=== PATIENT | male | born 1950 | race Hispanic/Latino ===

== ENCOUNTER → 2022-09-04 | Outpatient (CLI) | payer OTHER | END | disposition home or self-care (01) | LOC: SHCH 09:48 | PROVIDERS: ATTEND Internal Medicine Cardiovascular Disease | DX: I87.2 Venous insufficiency (chronic) (peripheral) (principal); I73.9 Peripheral vascular disease, unspecified | CPT/HCPCS: 93925; 93970 ==

== ENCOUNTER 2024-12-02 08:27 | Day surgery (SDC) | payer OTHER ==
[2024-11-28 10:55] VITALS: BP 169/71; PULSE 61; RESP 18; TEMP 97.2
[2024-11-28 11:07] LABS: CREATININE 1.2 mg/dL (0.5-1.3); POTASSIUM 4.4 mmol/L (3.5-5.1)
[2024-11-28 11:22] LABS: MEAN CORPUSCULAR HEMOGLOBIN 32.4 pg (27.0-33.0); MEAN CORPUSCULAR HGB CONC 34.3 g/dL (32.0-36.0); MEAN CORPUSCULAR VOLUME 94.3 fL (79-99); PLATELET COUNT (AUTO) 126 K/uL (130-400); RED BLOOD CELL COUNT(AUTO) 4.88 MIL/uL (4.50-6.20); RED CELL DISTRIBUTION WIDTH 13.8 % (11.0-15.5); WHITE BLOOD COUNT (AUTO) 6.2 K/uL (4.8-10.8)
[2024-11-28 11:23] LABS: BASOPHILS # (AUTO) 0.03 K/uL (0.00-0.20); BASOPHILS % (AUTO) 0.5 % (0.0-5.0); EOSINOPHILS # (AUTO) 0.09 K/uL (0.00-0.70); EOSINOPHILS % (AUTO) 1.4 % (0.0-8.0); IMMATURE GRANULOCYTE ABSOLUTE 0.03 K/uL (0-1); LYMPHOCYTES % (AUTO) 16.3 % (21.0-51.0); MONOCYTES # (AUTO) 0.6 K/uL (0.1-1.0); MONOCYTES % (AUTO) 9.7 % (3.0-13.0); NEUTROPHILS # (AUTO) 4.5 K/uL (1.8-7.7); NEUTROPHILS % (AUTO) 71.6 % (40.0-77.0)
[~2024-12-02] VITALS: Ht 182.9 cm; Wt 100.2 kg
[~2024-12-02 08:27] MED LIST: AMIO200T68 PO; AMLO-257 PO; ATOR40TA69 PO; CYAN-35 PO; ERGO500093 PO; FINE10TA PO; LINA1TAB5 PO; LISI40TA9 PO; PIOG30TA70 PO; RIVA20TA PO; TAMS-1 PO; VIT1CAPS47 PO
[2024-12-02] MEDS ORDERED: 0.9%NACL 1000ML 1,000 ML IV SCH (08:30)
[2024-12-02 09:00] VITALS: BP 162/72; PULSE 59; RESP 18; TEMP 97.2
--- NOTE | 2024-12-02 10:18 | EKG ---
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
[2024-12-02] MEDS ORDERED: proPOFol 10 MG/ML 20ML VIAL IV ONE (13:33)
[2024-12-02] MEDS ORDERED: LIDOCAINE PF 100MG/5ML (2%) SYRINGE 5ML ONE (13:33)
--- NOTE | 2024-12-02 13:55 | NUR ---
DR. MCMAHON SYNCHRONIZED CARDIOVERTED PT AT 200 JOULES. PT TOLERATED WELL NAD VSS.
--- NOTE | 2024-12-02 14:00 | NUR ---
PT CONVERTED BACK TO A FIB DR. MCMAHON SPEAKING WITH PT AND AT BEDSIDE ABOUT OTHER OPTIONS S/S. VSS NAD. PT CAOX 4
[2024-12-02 14:05] VITALS: BP 146/63; PULSE 55; RESP 15
--- NOTE | 2024-12-02 14:10 | NUR ---
PT AND SPOUSE REQUESTING INFORMATION ABOUT CARDIAC ABLATION I DID TELL THEM I WILL GIVE THEM INFORMATION ABOUT THIS.
[2024-12-02 14:20] VITALS: BP 141/69; PULSE 55; RESP 14; TEMP 97.4
[2024-12-02 14:35] VITALS: BP 150/66; PULSE 54; RESP 15
[2024-12-02 14:50] VITALS: BP 145/69; PULSE 53; RESP 13
--- NOTE | 2024-12-02 17:27 | PRN ---
Procedure Note Date of procedure: 12/02/24 Diagnosis: Persistent atrial fibrillation Procedure: Cardioversion Physician: Tye Mcmahon MD The patient was brought to the day patient area in a fasting state. Anesthesia was provided by the anesthesia service. Cardioversion was performed with a synchronized shock at 200 joules resulting in sinus rhythm. The patient tolerated the procedure well. Final diagnosis: Persistent atrial fibrillation, status post successful cardiov ersion Disposition: The patient will be discharged later today and will follow up with me in the office in approximately two weeks. TYE MCMAHON MD Dec 02, 2024 17:27
--- NOTE | 2024-12-03 12:29 | EKG ---
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
== END 2024-12-02 15:15 | disposition home or self-care (01) ==
LOC: DAH 08:27
PROVIDERS: ATTEND Internal Medicine Cardiovascular Disease
DX: I48.19 Other persistent atrial fibrillation (principal); I48.0 Paroxysmal atrial fibrillation; I10 Essential (primary) hypertension; I87.2 Venous insufficiency (chronic) (peripheral); E78.5 Hyperlipidemia, unspecified; E11.9 Type 2 diabetes mellitus without complications; Z79.84 Long term (current) use of oral hypoglycemic drugs; Z79.01 Long term (current) use of anticoagulants; Z98.890 Other specified postprocedural states; Z79.899 Other long term (current) drug therapy; Z83.3 Family history of diabetes mellitus; Z82.49 Family history of ischemic heart disease and other diseases of the circulatory system
CPT/HCPCS: 80048; 85025; 36415; 92960; 93005 ×2; 82948; J2003; J2704; A4620; A4215; A4222; A4221; A4663; A4216; A4606; A4223 ×3; J3490

== ENCOUNTER 2024-12-31 07:06 | Day surgery (SDC) | payer OTHER ==
[2024-12-29 09:57] LABS: BASOPHILS # (AUTO) 0.02 K/uL (0.00-0.20); BASOPHILS % (AUTO) 0.4 % (0.0-5.0); EOSINOPHILS % (AUTO) 2.2 % (0.0-8.0); HEMATOCRIT 45.8 % (42-54); IMMATURE GRANULOCYTE ABSOLUTE 0.02 K/uL (0-1); LYMPHOCYTES % (AUTO) 21.5 % (21.0-51.0); MEAN CORPUSCULAR HEMOGLOBIN 32.8 pg (27.0-33.0); MEAN CORPUSCULAR HGB CONC 33.8 g/dL (32.0-36.0); MEAN CORPUSCULAR VOLUME 96.8 fL (79-99); MONOCYTES # (AUTO) 0.6 K/uL (0.1-1.0); MONOCYTES % (AUTO) 12.6 % (3.0-13.0); NEUTROPHILS # (AUTO) 2.8 K/uL (1.8-7.7); NEUTROPHILS % (AUTO) 62.9 % (40.0-77.0); PLATELET COUNT (AUTO) 127 K/uL (130-400); RED BLOOD CELL COUNT(AUTO) 4.73 MIL/uL (4.50-6.20); RED CELL DISTRIBUTION WIDTH 14.1 % (11.0-15.5); WHITE BLOOD COUNT (AUTO) 4.5 K/uL (4.8-10.8)
[2024-12-29 10:04] LABS: CREATININE 1.4 mg/dL (0.5-1.3); POTASSIUM 4.7 mmol/L (3.5-5.1)
[2024-12-29 10:17] VITALS: BP 168/69; PULSE 58; RESP 18; TEMP 97.2
[2024-12-31] VITALS (7 sets, daily range): BP systolic 138–154; BP diastolic 57–75; PULSE 62–69; RESP 14–18; TEMP 97.2
[~2024-12-31] VITALS: Ht 182.9 cm; Wt 100.2 kg
[~2024-12-31 07:06] MED LIST changes: -LINA1TAB5 PO; +LINA1TAB9 PO; +OMEP20CA12 PO; -TAMS-1 PO; +TAMS-55 PO; +[UNRECOGNIZED DRUG - OTHER] PO; +tresiba SQ
--- NOTE | 2024-12-31 07:26 | EKG ---
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
[2024-12-31] MEDS: 0.9%NACL 1000ML 1,000 ML IV SCH (08:58)
[2024-12-31] MEDS ORDERED: proPOFol 10 MG/ML 20ML VIAL IV ONE (09:56)
--- NOTE | 2024-12-31 10:02 | NUR ---
PT SYNCHRONIZED CARDIOVERTED BY DR. SALOME AUSTIN 200 JOULES VSS NAD PT TOLERATED WELL NSR POST.
--- NOTE | 2024-12-31 10:06 | NUR ---
PT AWAKE SPEAKING WITH STAFF AND DR. MCMAHON
--- NOTE | 2024-12-31 10:10 | NUR ---
PT DISCHARGED HOME IV REMOVED SITE ASYMPTOMATIC. VERBAL AND WRITTEN INSTRUCTIONS GIVEN TO PT AND SPOUSE.
--- NOTE | 2024-12-31 13:51 | EKG ---
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
--- NOTE | 2025-01-01 11:27 | PRN ---
Procedure Note Date of procedure: 12/31/24 Diagnosis: Longstanding persistent atrial fibrillation Procedure: Cardioversion Physician: Tye Mcmahon MD The patient was brought to the day patient area in a fasting state. Anesthesia was provided by the anesthesia service. Cardioversion was performed with a synchronized shock at 200 joules resulting in sinus rhythm. The patient tolerated the procedure well. Final diagnosis: Persistent atrial fibrillation, status post successful cardioversion Disposition: The patient will be discharged later today and will follow up with me in the office in approximately two weeks. TYE MCMAHON MD Jan 01, 2025 11:27
== END 2024-12-31 10:20 | disposition home or self-care (01) ==
LOC: DAH 07:06
PROVIDERS: ATTEND Internal Medicine Cardiovascular Disease
DX: I48.11 Longstanding persistent atrial fibrillation (principal); I10 Essential (primary) hypertension; E11.9 Type 2 diabetes mellitus without complications; E66.9 Obesity, unspecified; E78.5 Hyperlipidemia, unspecified; Z79.01 Long term (current) use of anticoagulants; Z98.890 Other specified postprocedural states; Z79.899 Other long term (current) drug therapy
CPT/HCPCS: 80048; 85025; 36415; 92960; 82948; 93005 ×2; J7030; J2704; A4620; A4215; A4222; A4221; A4663; A4216; A4606; A4223 ×3; J3490